=== PATIENT | male | born 1980 | race Two or more races ===

== ENCOUNTER 2022-02-12 10:31 | Emergency (ER) | payer OTHER ==
[~2022-02-12] VITALS: Ht 182.9 cm; Wt 82.6 kg
--- NOTE | 2022-02-12 10:42 | NUR ---
BIBS W/ C/O LEFT ARM PAIN AND SWELLING S/P ARM SX ON 02/04/22; PT RATES PAIN /10 ON PS. TO ER BED 11.
[2022-02-12 11:15] LABS: BASOPHILS % (AUTO) 0.2 % (0.0-2.0); EOSINOPHILS % (AUTO) 0.7 % (0.0-6.0); HEMATOCRIT 42 % (39-51); LYMPHOCYTES # (AUTO) 0.8 K/uL (0.8-4.8); LYMPHOCYTES % (AUTO) 13.4 % (20.0-44.0); MEAN CORPUSCULAR HGB CONC 34 g/dl (31.0-36.0); MEAN CORPUSCULAR VOLUME 91 fL (80-96); MONOCYTES # (AUTO) 0.8 K/uL (0.1-1.30); MONOCYTES % (AUTO) 13.1 % (2.0-12.0); NEUTROPHILS # (AUTO) 4.6 K/uL (1.8-8.9); NEUTROPHILS % (AUTO) 72.6 % (43.0-81.0); PLATELET COUNT (AUTO) 210 K/uL (150-450); WHITE BLOOD COUNT (AUTO) 6.4 K/uL (4.3-11.0)
[2022-02-12 11:25] LABS: CALCIUM, SERUM 8.5 mg/dL (8.5-10.1); CREATININE 1.1 mg/dL (0.6-1.3); POTASSIUM 4.3 mmol/L (3.5-5.1)
[2022-02-12 11:32] LABS: ALBUMIN 3.3 g/dL (3.4-5.0); BILIRUBIN,TOTAL 1.1 mg/dL (0.2-1.0); TOTAL PROTEIN, SERUM 6.9 g/dL (6.4-8.2)
--- NOTE | 2022-02-12 14:07 | NUR ---
IV ACCESS ON R AC #20G
[2022-02-12] MEDS ORDERED: IOHEXOL-300 100 ML VIAL IV ONE (14:17)
[2022-02-12] MEDS ORDERED: APIX5TAB PO (15:48)
--- NOTE | 2022-02-12 16:13 | NUR ---
IV removed. Catheter intact and site benign. Pressure and 4x4 applied to site. No bleeding noted.Patient discharged to home in stable condition. Written and verbal after care instructions given. Patient verbalizes understanding of instruction.
[2022-02-12 16:14] VITALS: BP 128/84
== END 2022-02-12 16:15 | disposition home or self-care (01) ==
LOC: ER 10:35
DX: M79.89 Other specified soft tissue disorders (principal); M79.602 Pain in left arm; Z86.718 Personal history of other venous thrombosis and embolism; Z79.899 Other long term (current) drug therapy
CPT/HCPCS: 99285; 73201; 85025; 36415; 80053; 85730; Q9967